=== PATIENT | male | born 1975 | race African-American/Black ===

== ENCOUNTER 2016-05-29 14:06 | Inpatient (IN) | payer SELFPAY ==
--- NOTE | ~2016-05-29 | OP ---
Record Of Operation [facility] [address] [place]. [address] NAME: VASU JACOBO : 77 STATUS : ADM IN [facility]#: [id number] AGE: 40 ADM/REG DATE : 05/29/16 MR#: [id number] REPORT SERV DATE: 05/30/16 DICTATED BY: ALFREDITO VELEZ DATE: 05/30/16 REPORT STATUS : Draft TRANSCRIBED BY: MODVeronica DATE: 05/30/16 DATE OF PROCEDURE: 05/29/2016 PREOPERATIVE DIAGNOSIS: Emergent upper airway obstruction secondary to angioedema. POSTOPERATIVE DIAGNOSIS: Emergent upper airway obstruction secondary to angioedema. OPERATIVE PROCEDURE PERFORMED: Revision of cricothyroidotomy and tracheostomy. INDICATIONS AND SIGNIFICANT HISTORY: The patient is a 40-year-old male who presented emergently to the emergency department at [facility]. He underwent an emergent cricothyroidotomy followed by intubation and was felt to benefit from placement of a tracheostomy tube and was scheduled for such. PROCEDURE IN DETAIL: The patient was taken emergently to the operating room, where a general endotracheal anesthesia was induced by the Anesthesia Service and through his previous cricothyroidotomy incision, dissection began in the mid portion of the neck. Dissection was conducted down through the strap muscles, which were reflected laterally. The thyroid isthmus was identified and divided midline and retracted laterally. This exposed the anterior tracheal wall. The anterior tracheal wall was entered between the second and third tracheal rings using a Po-type flap. The trachea was then entered and his nasotracheal tube was withdrawn and a 6-0 Shiley DCT tracheostomy tube was inserted under direct visualization. The anesthesia circuit was then connected and placement of the tube was confirmed with return of end-tidal CO2 and adequate tidal volume. The patient was then turned back toward anesthesia after securing the tube and taken to the intensive care unit in stable condition. COMPLICATIONS: None. ESTIMATED BLOOD LOSS: Less than 5 mL. IV FLUIDS: Per Anesthesia. DLA/NASEEM Alfredito Velez M.D. / [id number] CC: Audrey Castillo MD
--- NOTE | ~2016-05-29 | OP ---
Record Of Operation [facility] [address] [place]. [address] NAME: TIMOTHY HENRY : 77 STATUS : ADM IN [facility]#: [id number] AGE: 40 ADM/REG DATE : 05/29/16 MR#: [id number] REPORT SERV DATE: 05/30/16 DICTATED BY: ERNIE MEZA DATE: 05/29/16 REPORT STATUS : Draft TRANSCRIBED BY: NASEEM DATE: 05/29/16 DATE OF PROCEDURE: 05/29/2016 REPORT TITLE: Bronchoscopy And Intubation Note INDICATION FOR PROCEDURE: I was called to the emergency department to evaluate Timothy Henry by the ER physician, Dr. Fung and anesthesiologist Dr. Sykes who were evaluating Mr. Henry for a dramatic development of angioedema. He is a 40-year-old gentleman in relatively good health. Upon arrival, the patient was in the process of being prepped for a percutaneous cric by Dr. Thom Fung and we had the flexible fiberoptic bronchoscope brought to the room emergently. I was able to visualize markedly edematous vocal cords after advancing the bronchoscope through the right naris using local anesthetic, viscous lidocaine and with some difficulty, we were able to advance the bronchoscope through the patient's vocal cords and clearly visualize the brenda. At this point, Dr. Fung had already initiated a performance of cric in the setting of hypoxemia. We were able to advance a #7 endotracheal tube through the right naris and advanced it over the bronchoscope through the markedly edematous vocal cords with clear visualization of the brenda at approximately 3 cm below the tip of the endotracheal tube (#7.0). The patient was bagged using CO2 detector, and there was positive color change and bilateral breath sounds were audible with no breath sounds audible over the fundus of the stomach. We were able to bag the patient without difficulty and upon arrival of Dr. Saravia from [facility], the patient was transferred urgently to the operating room for exploration and control of bleeding of the cricothyroidotomy incision and the patient was moved emergently to the 2nd floor operating room for further care. We will resume management in the intensive care unit postoperatively. No family was available for update following this procedure. See additional Critical Care notes for further information and additional critical care management. KEM/NASEEM Ernie Meza MD / [id number] CC: Ernie Meza MD
--- NOTE | ~2016-05-29 | DS ---
Discharge Summary [facility] [address] [place]. [address] NAME: VASU JACOBO : 77 STATUS : ADM IN [facility]#: [id number] AGE: 40 ADM/REG DATE : 05/29/16 MR#: [id number] REPORT SERV DATE: 06/07/16 DICTATED BY: Roxanne JACOB DATE: 06/07/16 REPORT STATUS : Draft TRANSCRIBED BY: NASEEM DATE: 06/07/16 ADMISSION DATE: 05/29/2016 DISCHARGE DATE: 06/07/2016 DIAGNOSES AT DISCHARGE: Angioneurotic edema, secondary to C1 Esterase deficiency, posttraumatic stress disorder. CONSULT: ENT and Critical Care. PROCEDURE: Emergent tracheostomy. 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 Saravia in the emergency room. The patient was treated with Berinert C1 esterase replacement therapy with good results. His tracheostomy was ultimately removed, but because of his social status and inability to afford appropriate medications, the patient was kept as an inpatient for additional days to secure for him samples of the outpatient form with the therapy which is called Firazyr, once this medication was available for him for home use, the patient was discharged home in stable condition. He has plans to follow up with Dr. Mike Guevara, local vpk teacher and fruit rancher for ongoing management, and hopefully supply of oleg medications for ongoing management of his condition. MARGARITA/NASEEM Roxanne Jacob M.D. / [id number] CC: Qasim Jacobs M.D.
--- NOTE | ~2016-05-29 | DS ---
Discharge Summary [facility] [address] [place]. [address] NAME: VASU JACOBO : 77 STATUS : ADM IN PAT#: [id number] AGE: 40 ADM/REG DATE : 05/29/16 MR#: [id number] REPORT SERV DATE: 06/02/16 DICTATED BY: Roxanne JACOB DATE: 06/02/16 REPORT STATUS : Draft TRANSCRIBED BY: MODL DATE: 06/02/16 ADMISSION DATE: 05/29/2016 DISCHARGE DATE: INTERIM SUMMARY DATE: 06/02/2016. 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 PROCEDURES: Emergent tracheostomy placed in the emergency room by ENT. CONSULT: ENT and Pulmonary Critical Care. BRIEF HOSPITAL COURSE: A 40-year-old male with significant history of angioedema secondary to C1 esterase deficiency, presents to the emergency room with severe angioedema that ultimately required emergent tracheostomy as a life-saving effort done in the emergency room. He was transitioned to the ICU, where he was given Berinert for immediate therapy. The patient responded well and was subsequently transitioned to intermediate care. Seen and evaluated by ENT. His tracheostomy was subsequently been removed and case management is currently working diligently to provide two significant medicines. One is Cinryze, which is a purified C1 concentrate, which is a maintenance therapy for his condition, as well as Firazyr, which is a bradykinin B2 receptor sergey, which is also a necessary therapy for his condition. The patient will transition to a non-monitored floor today. He will not be safe to discharge so we can secure these medications for the patient as his condition will recover and without appropriate therapy to abort an episode, it will become a life- threatening issue again. The patient will ultimately follow up with Dr. Guevara, a local dealmaker after discharge, but not until appropriate medication therapy is available for him. The patient did have a swallow evaluation, which he passed and has been subsequently started on a regular diet. Further recommendations for treatment pending input from the hospitalist team, but at this juncture, he is medically ready to go. We are simply working through Case Management to provide the appropriate outpatient therapy for his unique condition as this is critically important to management and could prevent a life-threatening episode in the future. The patient is aware of the severity of his illness and the need to have appropriate therapy and is currently agreeable to staying in the hospital until we can provide the above-mentioned therapy. MARGARITA/NASEEM Roxanne Jacob M.D. / [id number] CC: Discharge Summary [address] [address] NAME: VASU JACOBO : 77 STATUS : ADM IN [facility]#: [id number] AGE: 40 ADM/REG DATE : 05/29/16 MR#: [id number] REPORT SERV DATE: 06/02/16 DICTATED BY: Roxanne JACOB DATE: 06/02/16 REPORT STATUS : Draft TRANSCRIBED BY: MODVeronica DATE: 06/02/16 Audrey Castillo MD
--- NOTE | ~2016-05-29 | DS ---
Discharge Summary [facility] [address] [place]. 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 CONSULTS: ENT and Pulmonary and Critical Care Medicine. PROCEDURES: Tracheostomy. BRIEF HOSPITAL COURSE: A 40-year-old male patient with known C1 esterase deficiency with recurrent angioedema with previous presentations though less severe than this current admission. The patient had airway compromise requiring emergent tracheostomy done by Dr. Saravia in the emergency room. We have worked at great lengths to provide appropriate medical therapy for ongoing management of his condition including Cinryze, which is a purified C1 concentrate, and Firazyr, which is a bradykinin B2 receptor sergey. Unfortunately, once his trach was removed, the patient demanded to leave [facility] despite multiple attempts by multiple people to convince him of the preventible, though life- threatening nature of his condition. The patient would not wait for us to arrange medical therapy or followup and instead is leaving [facility]. The patient's brother was here with him. I did plead with the brother also to try to talk some sense into him to understand the grave decision that he was making that he was potentially putting his very life in danger by leaving, but despite those efforts, the patient decided that he was not staying regardless. As a result, the patient was discharged against medical advice on 06/02/2016. [facility]/NASEEM Roxanne Jacob M.D. / [id number] CC: Audrey Castillo MD
--- NOTE | ~2016-05-29 | HP ---
History And Physical [facility] [address] [place]. [address] NAME: TIMOTHY HENRY : [birth year] STATUS : ADM IN [facility]#: [id number] AGE: 40 ADM/REG DATE : 05/29/16 MR#: [id number] REPORT SERV DATE: 05/29/16 DICTATED BY: AUDREY MEZA DATE: 05/29/16 REPORT STATUS : Draft TRANSCRIBED BY: MODL DATE: 05/29/16 DATE OF ADMISSION: 05/29/2016 PULMONARY AND CRITICAL CARE MEDICINE ADMITTING HISTORY AND PHYSICAL REASON FOR ADMISSION: Hereditary angioedema exacerbation requiring emergent airway. HISTORY OF PRESENT ILLNESS: Mr. 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 He actually presented to the emergency department in marked distress and was brought back to the trauma room immediately with dramatic presentation of angioedema of the lips and neck. He was seen by Dr. Thom Rolon and ultimately Dr. Naranjo from Anesthesiology became involved as well as they were having significant difficulty obtaining a secure airway on him. I was asked to join in the efforts and a bronchoscopy cart was brought to the bedside and he was becoming quite hypoxemic (no more than 1 minute between development of hypoxemia and obtaining the airway). Simultaneous efforts to prep his neck for emergent cricothyroidotomy were being completed by Dr. Thom Rolon as Dr. Naranjo and I attempted to utilize fiberoptic bronchoscopy to visualize his cords and intubate him nasally from above. He had already failed attempts to intubate using a GlideScope due to marked liver angioedema. Ultimately I was able to intubate through the right naris using the bronchoscope as a bougie and advance the tube into the trachea using direct visualization with a flexible fiberoptic bronchoscope. By this time, he had already had initiation of a cricothyroidotomy by Dr. Rolon. Please see my bronchoscopy/intubation note for additional details of that procedure. He was seen by Dr. Saravia in the emergency department who at this point had already arrived as well and he was moved emergently to the operating room for tracheostomy and revision of the cricothyroidotomy. He is now stable on the ventilator in the PACU, awaiting an ICU bed for further care. PAST MEDICAL HISTORY: Significant only for recurrent angioedema and C1 esterase deficiency, requiring hospitalization at our facility in August of 2009, June of 2011, January of 2015, and April of 2015. Evidently he has been referred multiple times to Allergy Immunology including through project access but the patient has not been able to connect due to financial issues. HOME MEDICATIONS: Include Benadryl, Aleve, and mupirocin ointment. SOCIAL HISTORY: Nonsmoker. Nondrinker. No illicit drug use. According to his previous records, evidently his mother normally accompanies him to the emergency room although she has not been available today. FAMILY HISTORY: Both mother and grandfather have C1 esterase deficiency with recurrent angioedema. ALLERGIES: NONE KNOWN. REVIEW OF SYSTEMS: History And Physical [address] [address] NAME: TIMOTHY HENRY : 77 STATUS : ADM IN [facility]#: [id number] AGE: 40 ADM/REG DATE : 05/29/16 MR#: [id number] REPORT SERV DATE: 05/29/16 DICTATED BY: AUDREY MEZA DATE: 05/29/16 REPORT STATUS : Draft TRANSCRIBED BY: NASEEM DATE: 05/29/16 Has been completed and is negative except for those points described above in the history of present illness section of the dictation. PHYSICAL EXAMINATION: VITAL SIGNS: Heart rate is in the 80s and regular. He is afebrile, breathing 12 times a minute on mechanical ventilation and a propofol drip. Blood pressure is in the 130 systolic. GENERAL: He is an male with dramatic angioedema of the lips and neck. Ears and nose are unremarkable. Mouth have moist oral mucosa. NECK: Has a fresh tracheostomy with some oozing around the incision site. No JVD is noted. LUNGS: Clear to auscultation bilaterally. HEART: S1, S2. Brisk cap refill distal extremities. ABDOMEN: Soft, nontender, nondistended with positive bowel sounds in all four quadrants. No appreciable peritoneal signs. : A Ovalle catheter is indwelling and draining translucent yellow urine. EXTREMITIES: Without clubbing, cyanosis, or edema. SKIN: Warm and dry. No rash is appreciated. LYMPHATIC: Exam is unremarkable with no palpable adenopathy throughout. NEUROLOGIC: Exam is grossly intact although he is sedated on a propofol drip which limits my evaluation. PSYCHIATRIC EXAM: Unable to perform due to sedation. LABORATORY AND DIAGNOSTIC DATA: Personal review of diagnostic workup completed in the emergency department, a glucose level was 102. No further labs have been collected due to the acuity of his airway situation and being brushed off to the operating room. IMPRESSION: Acute hypoxemic respiratory failure secondary to acute exacerbation of angioedema in the setting of known C1 esterase deficiency, status post nasal intubation and cricothyroidotomy, now revised and converted to a tracheostomy. Hemodynamically stable on the ventilator. PLAN: We are moving Mr. Timothy Henry to the MICU for additional management. We will treat with Benadryl, Pepcid, and Solu-Medrol. He has already received epinephrine in the emergency department. We will control pain and check some basic labs and obtain records from his outpatient providers. He will certainly need outpatient followup. We will also consult with clinical pharmacy and determine whether C1 esterase concentrate is available in our facility. Case has been discussed with Dr. Thom Rolon during emergent intubation attempts at the bedside in addition to Dr. Naranjo from Anesthesiology and Dr. Saravia from [facility], [facility], [facility] Thro[facility]. We will continue to attempt to locate his mother or other family to update them on his condition and he will be a full code during this hospitalization. DVT prophylaxis is SCDs and TEDs in light of recent tracheostomy with some oozing from the surgical site, and stress ulcer prophylaxis will be famotidine twice daily, electrolyte protocol, bronchodilator protocol have been initiated and he will need a PICC line. History And Physical [address] [address] NAME: TIMOTHY HENRY : 77 STATUS : ADM IN [facility]#: [id number] AGE: 40 ADM/REG DATE : 05/29/16 MR#: [id number] REPORT SERV DATE: 05/29/16 DICTATED BY: AUDREY MEZA DATE: 05/29/16 REPORT STATUS : Draft TRANSCRIBED BY: NASEEM DATE: 05/29/16 KEM/NASEEM Audrey Meza MD / [id number]
[~2016-05-29 14:06] MED LIST: ALEVE220 MG PO; BACTRONASA NAS; BEN25 PO; DENIES HOME MEDS; EPIPEN0.3 IM
[2016-05-29 18:13] LABS: BASOPHILS 0.1 %; BASOPHILS ABSOLUTE 0.01 10/3/uL (0.0-0.16); EOSINOPHILS 0 %; HEMATOCRIT 44.8 % (40.0-51.0); HEMOGLOBIN 15.2 g/dL (13.6-17.8); IMMATURE GRANULOCYTES 0.2 %; IMMATURE GRANULOCYTES ABSOLUTE 0.03 10/3/uL (0.0-0.11); LYMPHOCYTES 3.4 %; LYMPHOCYTES ABSOLUTE 0.52 10/3/uL (0.67-4.30); MEAN CORPUS HGB CONC 33.9 g/dL (32.0-36.0); MEAN CORPUSCULAR HEMOGLOB 30.8 pg (26.0-34.0); MEAN CORPUSCULAR VOLUME 90.7 fL (80-100); MEAN PLATELET VOLUME 11.4 fL (9.2-13.0); MONOCYTES 0.7 %; NEUTROPHILS 95.6 %; NEUTROPHILS ABSOLUTE 14.54 10/3/uL (2.02-8.40); PLATELET COUNT 224 10/3/uL (150-400); RBC DISTRIBUTION WIDTH 13.8 % (12.0-16.0); RED CELL COUNT 4.94 10/6/uL (4.7-6.1); WHITE BLOOD CELLS 15.2 10/3/uL (4.5-10.5)
[2016-05-29 18:14] LABS: MANUAL DIFF NO %
[2016-05-29 18:21] LABS: INTERNATIONAL NORMAL RATI 1.1 UNITS (-); PARTIAL THROMBO TIME 25.2 SEC (22.5-37.2); PROTIME (NOT ORD) 14.3 SEC (12.0-14.5)
[2016-05-29 18:35] LABS: A/G RATIO 1.1 (0.7-1.9); ALBUMIN 3.3 G/DL (3.5-5.0); ALKALINE PHOSPHATASE 68 U/L (45-117); BUN (BLOOD UREA NITROGEN) 13 MG/DL (6-23); CALCIUM, SERUM 8.1 MG/DL (8.5-10.4); CHLORIDE, SERUM 110 MMOL/L (96-112); CO2 (CARBON DIOXIDE) 25 MMOL/L (24-34); CREATININE 1.03 MG/DL (0.70-1.30); FREE T4 1.12 NG/DL (0.76-1.46); GFR AFRICAN AMERICAN 106 ML/MIN (>=60); GFR NON AFRICAN AMERICAN 91 ML/MIN (>=60); GLUCOSE, SERUM 140 MG/DL (60-99); PHOSPHORUS, SERUM 3.3 MG/DL (2.5-4.5); POTASSIUM, SERUM 4.7 MMOL/L (3.5-5.3); SGOT(AST) 20 U/L (5-40); SGPT(ALT) 45 U/L (5-65); SODIUM, SERUM 143 MMOL/L (135-148); TOTAL BILIRUBIN 0.4 MG/DL (0-1.2); TOTAL PROTEIN 6.3 G/DL (6.0-8.5)
[2016-05-29 19:13] LABS: ASCORBIC ACID (UR NOT ORDER) NEG (NEG); BILIRUBIN, URINE NEGATIVE (NEG); KETONE, URINE NEGATIVE (NEG); LEUKOCYTE ESTERASE(NOT OR NEG (NEG); WBC (NOT ORDERED) (RFLEX) < 1 (0-5)
[2016-05-29 19:21] LABS: PHENCYCLIDINE(PCP) NEG (NEG)
[2016-05-29 19:22] LABS: AMPHETAMINES (NOT ORD) NEG (NEG); BARBITURATES (NOT ORDERED NEG (NEG); BENZODIAZEPINES (NOT ORD) POS (NEG); CANNABINOIDS (THC) NEG (NEG); COCAINE (NOT ORDERED) NEG (NEG); OPIATES POS (NEG); TRICYCLICS NEG (NEG)
[2016-05-29 19:49] LABS: ALLENS TEST Pos; CARBOXYHEMOGLOBIN 0.5 % (0-3); HCO3 (ACTUAL BICARBONATE) 23.4 MEQ/L (23-27); HEMOBLOGIN CONTENT 15.8 G/DL (14-18); INSTRUMENT SERIAL # 8083; METHEMOGLOBIN 0.4 % (0-3); MODE CMV; OPERATOR ID 17370; PCO2 (CO2 TENSION) 42 MMHG (35-45); PO2 (O2 TENSION) 137 MMHG (79-93); SAMPLE Arterial; TIDAL VOLUME 480 ML; pH 7.36 (7.37-7.43)
[2016-05-30 04:33] LABS: ALLENS TEST Pos; BE (BASE EXCESS) -2.1 MEQ/L (0 +/- 2.5); CARBOXYHEMOGLOBIN 0.1 % (0-3); HCO3 (ACTUAL BICARBONATE) 21.6 MEQ/L (23-27); HEMOBLOGIN CONTENT 15.5 G/DL (14-18); INSTRUMENT SERIAL # 8083; METHEMOGLOBIN 0.5 % (0-3); MODE CMV; O2 CONTENT 21.5 VOL% (18-24); OPERATOR ID 35190; PCO2 (CO2 TENSION) 34 MMHG (35-45); PO2 (O2 TENSION) 131 MMHG (79-93); SAMPLE Arterial; TIDAL VOLUME 450 ML; pH 7.42 (7.37-7.43)
[2016-05-30 05:04] LABS: BASOPHILS 0 %; EOSINOPHILS 0 %; HEMATOCRIT 46.6 % (40.0-51.0); HEMOGLOBIN 15.6 g/dL (13.6-17.8); IMMATURE GRANULOCYTES 0.3 %; IMMATURE GRANULOCYTES ABSOLUTE 0.05 10/3/uL (0.0-0.11); LYMPHOCYTES 3.2 %; LYMPHOCYTES ABSOLUTE 0.64 10/3/uL (0.67-4.30); MEAN CORPUS HGB CONC 33.5 g/dL (32.0-36.0); MEAN CORPUSCULAR HEMOGLOB 31.1 pg (26.0-34.0); MEAN PLATELET VOLUME 11.5 fL (9.2-13.0); MONOCYTES 1.7 %; MONOCYTES ABSOLUTE 0.34 10/3/uL (0.21-1.20); NEUTROPHILS 94.8 %; NEUTROPHILS ABSOLUTE 18.74 10/3/uL (2.02-8.40); PLATELET COUNT 231 10/3/uL (150-400); RBC DISTRIBUTION WIDTH 13.8 % (12.0-16.0); RED CELL COUNT 5.01 10/6/uL (4.7-6.1); WHITE BLOOD CELLS 19.8 10/3/uL (4.5-10.5)
[2016-05-30 05:06] LABS: MANUAL DIFF NO %
[2016-05-30 05:38] LABS: ALBUMIN 3.4 G/DL (3.5-5.0); BUN (BLOOD UREA NITROGEN) 17 MG/DL (6-23); CALCIUM, SERUM 8.4 MG/DL (8.5-10.4); CHLORIDE, SERUM 107 MMOL/L (96-112); CO2 (CARBON DIOXIDE) 20 MMOL/L (24-34); CREATININE 1.23 MG/DL (0.70-1.30); GFR AFRICAN AMERICAN 85 ML/MIN (>=60); GFR NON AFRICAN AMERICAN 73 ML/MIN (>=60); GLUCOSE, SERUM 125 MG/DL (60-99); PHOSPHORUS, SERUM 3.2 MG/DL (2.5-4.5); SODIUM, SERUM 139 MMOL/L (135-148)
[2016-05-30 05:39] LABS: POTASSIUM, SERUM 4.8 MMOL/L (3.5-5.3)
[2016-05-30] MEDS ORDERED: BEN25 PO (19:44)
[2016-05-31 04:38] LABS: BASOPHILS 0.1 %; BASOPHILS ABSOLUTE 0.01 10/3/uL (0.0-0.16); EOSINOPHILS 0 %; HEMATOCRIT 41.9 % (40.0-51.0); HEMOGLOBIN 14.1 g/dL (13.6-17.8); IMMATURE GRANULOCYTES 0.2 %; IMMATURE GRANULOCYTES ABSOLUTE 0.04 10/3/uL (0.0-0.11); LYMPHOCYTES 2.4 %; LYMPHOCYTES ABSOLUTE 0.46 10/3/uL (0.67-4.30); MANUAL DIFF NO %; MEAN CORPUS HGB CONC 33.7 g/dL (32.0-36.0); MEAN CORPUSCULAR HEMOGLOB 31.1 pg (26.0-34.0); MEAN CORPUSCULAR VOLUME 92.3 fL (80-100); MEAN PLATELET VOLUME 11.6 fL (9.2-13.0); MONOCYTES 4.3 %; MONOCYTES ABSOLUTE 0.82 10/3/uL (0.21-1.20); NEUTROPHILS ABSOLUTE 17.76 10/3/uL (2.02-8.40); PLATELET COUNT 215 10/3/uL (150-400); RBC DISTRIBUTION WIDTH 13.8 % (12.0-16.0); RED CELL COUNT 4.54 10/6/uL (4.7-6.1); WHITE BLOOD CELLS 19.1 10/3/uL (4.5-10.5)
[2016-05-31 04:52] LABS: BUN (BLOOD UREA NITROGEN) 19 MG/DL (6-23); CALCIUM, SERUM 8.4 MG/DL (8.5-10.4); CHLORIDE, SERUM 106 MMOL/L (96-112); CREATININE 1.11 MG/DL (0.70-1.30); GFR AFRICAN AMERICAN 96 ML/MIN (>=60); GFR NON AFRICAN AMERICAN 83 ML/MIN (>=60); GLUCOSE, SERUM 138 MG/DL (60-99); POTASSIUM, SERUM 4.5 MMOL/L (3.5-5.3); SODIUM, SERUM 141 MMOL/L (135-148)
[2016-05-31 04:57] LABS: CO2 (CARBON DIOXIDE) 28 MMOL/L (24-34); PHOSPHORUS, SERUM 2.2 MG/DL (2.5-4.5)
[2016-06-01 09:56] LABS: BASOPHILS 0.1 %; BASOPHILS ABSOLUTE 0.01 10/3/uL (0.0-0.16); EOSINOPHILS 0.2 %; EOSINOPHILS ABSOLUTE 0.02 10/3/uL (0.0-0.53); HEMATOCRIT 40.7 % (40.0-51.0); HEMOGLOBIN 13.9 g/dL (13.6-17.8); IMMATURE GRANULOCYTES 0.4 %; IMMATURE GRANULOCYTES ABSOLUTE 0.05 10/3/uL (0.0-0.11); LYMPHOCYTES ABSOLUTE 2.61 10/3/uL (0.67-4.30); MEAN CORPUS HGB CONC 34.2 g/dL (32.0-36.0); MEAN CORPUSCULAR HEMOGLOB 30.8 pg (26.0-34.0); MEAN PLATELET VOLUME 11.3 fL (9.2-13.0); MONOCYTES 9.1 %; MONOCYTES ABSOLUTE 1.19 10/3/uL (0.21-1.20); NEUTROPHILS 70.2 %; NEUTROPHILS ABSOLUTE 9.14 10/3/uL (2.02-8.40); PLATELET COUNT 197 10/3/uL (150-400); RBC DISTRIBUTION WIDTH 13.6 % (12.0-16.0); RED CELL COUNT 4.52 10/6/uL (4.7-6.1)
[2016-06-01 09:58] LABS: MANUAL DIFF NO %
[2016-06-01 10:16] LABS: BUN (BLOOD UREA NITROGEN) 18 MG/DL (6-23); CALCIUM, SERUM 8.3 MG/DL (8.5-10.4); CHLORIDE, SERUM 110 MMOL/L (96-112); CO2 (CARBON DIOXIDE) 25 MMOL/L (24-34); CREATININE 0.89 MG/DL (0.70-1.30); GFR AFRICAN AMERICAN 125 ML/MIN (>=60); GFR NON AFRICAN AMERICAN 108 ML/MIN (>=60); POTASSIUM, SERUM 3.6 MMOL/L (3.5-5.3); SODIUM, SERUM 145 MMOL/L (135-148)
[2016-06-01 10:17] LABS: GLUCOSE, SERUM 97 MG/DL (60-99)
[2016-06-02 04:31] LABS: BASOPHILS 0.1 %; BASOPHILS ABSOLUTE 0.01 10/3/uL (0.0-0.16); EOSINOPHILS 1.2 %; EOSINOPHILS ABSOLUTE 0.15 10/3/uL (0.0-0.53); HEMATOCRIT 39.1 % (40.0-51.0); HEMOGLOBIN 13.1 g/dL (13.6-17.8); IMMATURE GRANULOCYTES 0.2 %; IMMATURE GRANULOCYTES ABSOLUTE 0.03 10/3/uL (0.0-0.11); LYMPHOCYTES 16.4 %; LYMPHOCYTES ABSOLUTE 2.06 10/3/uL (0.67-4.30); MEAN CORPUS HGB CONC 33.5 g/dL (32.0-36.0); MEAN CORPUSCULAR HEMOGLOB 30.8 pg (26.0-34.0); MEAN CORPUSCULAR VOLUME 91.8 fL (80-100); MEAN PLATELET VOLUME 11.2 fL (9.2-13.0); MONOCYTES 8.3 %; MONOCYTES ABSOLUTE 1.05 10/3/uL (0.21-1.20); NEUTROPHILS 73.8 %; NEUTROPHILS ABSOLUTE 9.29 10/3/uL (2.02-8.40); PLATELET COUNT 191 10/3/uL (150-400); RBC DISTRIBUTION WIDTH 13.3 % (12.0-16.0); RED CELL COUNT 4.26 10/6/uL (4.7-6.1); WHITE BLOOD CELLS 12.6 10/3/uL (4.5-10.5)
[2016-06-02 04:32] LABS: MANUAL DIFF NO %
[2016-06-02 04:36] LABS: BUN (BLOOD UREA NITROGEN) 16 MG/DL (6-23); CALCIUM, SERUM 8.2 MG/DL (8.5-10.4); CHLORIDE, SERUM 106 MMOL/L (96-112); CREATININE 1.03 MG/DL (0.70-1.30); GFR AFRICAN AMERICAN 106 ML/MIN (>=60); GFR NON AFRICAN AMERICAN 91 ML/MIN (>=60); GLUCOSE, SERUM 90 MG/DL (60-99); POTASSIUM, SERUM 3.7 MMOL/L (3.5-5.3); SODIUM, SERUM 144 MMOL/L (135-148)
[2016-06-02 04:40] LABS: CO2 (CARBON DIOXIDE) 30 MMOL/L (24-34)
[2016-06-04 04:37] LABS: BASOPHILS 0.1 %; BASOPHILS ABSOLUTE 0.01 10/3/uL (0.0-0.16); EOSINOPHILS 4.3 %; EOSINOPHILS ABSOLUTE 0.34 10/3/uL (0.0-0.53); HEMATOCRIT 39.5 % (40.0-51.0); HEMOGLOBIN 13.6 g/dL (13.6-17.8); IMMATURE GRANULOCYTES 0.4 %; IMMATURE GRANULOCYTES ABSOLUTE 0.03 10/3/uL (0.0-0.11); LYMPHOCYTES 26.5 %; LYMPHOCYTES ABSOLUTE 2.08 10/3/uL (0.67-4.30); MANUAL DIFF NO %; MEAN CORPUS HGB CONC 34.4 g/dL (32.0-36.0); MEAN PLATELET VOLUME 11.3 fL (9.2-13.0); MONOCYTES 7.4 %; MONOCYTES ABSOLUTE 0.58 10/3/uL (0.21-1.20); NEUTROPHILS 61.3 %; NEUTROPHILS ABSOLUTE 4.82 10/3/uL (2.02-8.40); PLATELET COUNT 203 10/3/uL (150-400); RBC DISTRIBUTION WIDTH 12.7 % (12.0-16.0); RED CELL COUNT 4.39 10/6/uL (4.7-6.1); WHITE BLOOD CELLS 7.9 10/3/uL (4.5-10.5)
[2016-06-04 04:53] LABS: A/G RATIO 0.9 (0.7-1.9); ALBUMIN 3.2 G/DL (3.5-5.0); ALKALINE PHOSPHATASE 75 U/L (45-117); BUN (BLOOD UREA NITROGEN) 13 MG/DL (6-23); CALCIUM, SERUM 8.3 MG/DL (8.5-10.4); CHLORIDE, SERUM 109 MMOL/L (96-112); CREATININE 0.99 MG/DL (0.70-1.30); GFR AFRICAN AMERICAN 111 ML/MIN (>=60); GFR NON AFRICAN AMERICAN 96 ML/MIN (>=60); GLOBULIN 3.5 G/DL (2.5-4.1); GLUCOSE, SERUM 92 MG/DL (60-99); SGOT(AST) 41 U/L (5-40); SGPT(ALT) 71 U/L (5-65); SODIUM, SERUM 143 MMOL/L (135-148); TOTAL BILIRUBIN 0.5 MG/DL (0-1.2); TOTAL PROTEIN 6.7 G/DL (6.0-8.5)
[2016-06-04 04:54] LABS: CO2 (CARBON DIOXIDE) 24 MMOL/L (24-34)
[2016-06-05 05:42] LABS: BASOPHILS 0.1 %; BASOPHILS ABSOLUTE 0.01 10/3/uL (0.0-0.16); EOSINOPHILS 4.8 %; EOSINOPHILS ABSOLUTE 0.38 10/3/uL (0.0-0.53); HEMATOCRIT 39.8 % (40.0-51.0); HEMOGLOBIN 13.6 g/dL (13.6-17.8); IMMATURE GRANULOCYTES 0.6 %; IMMATURE GRANULOCYTES ABSOLUTE 0.05 10/3/uL (0.0-0.11); LYMPHOCYTES 27.3 %; LYMPHOCYTES ABSOLUTE 2.18 10/3/uL (0.67-4.30); MEAN CORPUS HGB CONC 34.2 g/dL (32.0-36.0); MEAN CORPUSCULAR HEMOGLOB 30.8 pg (26.0-34.0); MEAN PLATELET VOLUME 11.3 fL (9.2-13.0); MONOCYTES 7.1 %; MONOCYTES ABSOLUTE 0.57 10/3/uL (0.21-1.20); NEUTROPHILS 60.1 %; PLATELET COUNT 205 10/3/uL (150-400); RBC DISTRIBUTION WIDTH 12.9 % (12.0-16.0); RED CELL COUNT 4.42 10/6/uL (4.7-6.1)
[2016-06-05 05:51] LABS: MANUAL DIFF NO %
[2016-06-05 06:05] LABS: A/G RATIO 0.9 (0.7-1.9); ALBUMIN 3.2 G/DL (3.5-5.0); BUN (BLOOD UREA NITROGEN) 13 MG/DL (6-23); CALCIUM, SERUM 8.4 MG/DL (8.5-10.4); CHLORIDE, SERUM 107 MMOL/L (96-112); CHOL/HDL RATIO(NOT ORDER) 4.9 (0-5); CHOLESTEROL 153 MG/DL (< 200); CO2 (CARBON DIOXIDE) 27 MMOL/L (24-34); CREATININE 0.91 MG/DL (0.70-1.30); GFR AFRICAN AMERICAN 123 ML/MIN (>=60); GFR NON AFRICAN AMERICAN 106 ML/MIN (>=60); GLOBULIN 3.4 G/DL (2.5-4.1); GLUCOSE, SERUM 87 MG/DL (60-99); HDL CHOLESTEROL 31 MG/DL (> 39); LDL CHOLESTEROL 107 MG/DL (< 130); NON-HDL CHOLESTEROL 122 MG/DL (< 160); POTASSIUM, SERUM 3.9 MMOL/L (3.5-5.3); SGOT(AST) 29 U/L (5-40); SGPT(ALT) 65 U/L (5-65); SODIUM, SERUM 141 MMOL/L (135-148); TOTAL BILIRUBIN 0.3 MG/DL (0-1.2); TOTAL PROTEIN 6.6 G/DL (6.0-8.5); TRIGLYCERIDE 76 MG/DL (< 150)
[2016-06-05 06:09] LABS: ALKALINE PHOSPHATASE 89 U/L (45-117); PHOSPHORUS, SERUM 3.4 MG/DL (2.5-4.5)
[2016-06-05 06:12] LABS: PREALBUMIN 23.2 MG/DL (17.0-43.0)
== END 2016-06-07 18:00 | disposition home or self-care (01) | DRG 3 ==
LOC: ER 14:06 → MIC 17:22 → IMCU 05-31 16:35
PROVIDERS: Hospitalist; Internal Medicine; Internal Medicine Critical Care Medicine; Internal Medicine Pulmonary Disease; Otolaryngology
PROC: 0BB10ZZ Excision of Trachea, Open Approach (ICD-10-PCS; 2016-05-29)
PROC: 0B110F4 Bypass Trachea to Cutaneous with Tracheostomy Device, Open Approach (ICD-10-PCS; 2016-05-29)
PROC: 0BW10FZ Revision of Tracheostomy Device in Trachea, Open Approach (ICD-10-PCS; 2016-05-29)
PROC: 0BH17EZ Insertion of Endotracheal Airway into Trachea, Via Natural or Artificial Opening (ICD-10-PCS; 2016-05-29)
PROC: 5A1945Z Respiratory Ventilation, 24-96 Consecutive Hours (ICD-10-PCS; principal; 2016-05-29 13:15)
PROC: 0BP1XFZ Removal of Tracheostomy Device from Trachea, External Approach (ICD-10-PCS; 2016-06-02)
DX: D84.1 Defects in the complement system (principal); F43.10 Post-traumatic stress disorder, unspecified; Z91.19 Patient's noncompliance with other medical treatment and regimen
CPT/HCPCS: 31720; 36600; 71010; 74000; 74230; 80048; 80053; 80061; 80069; 80305; 81001; 82805; 82962; 83036; 83735; 84100; 84134; 84439; 84443; 85025; 85610; 85730; 86160; 86161; 86332; 87641; 92610-GN; 92611-GN; 94002; 94003; 94640; 96372; 96374; 96375; 99291; 99292; A9270-GY; G8996-CI-GN; G8996-CN-GN; G8997-CI-GN; G8997-CN-GN; G8998-CI-GN; G8998-CN-GN; J0330; J0597; J0690; J1170; J1200; J2405; J2710; J2930; J3010

== ENCOUNTER 2016-07-28 07:59 | Emergency (ER) | payer SELFPAY | END 2016-07-28 08:51 | disposition home or self-care (01) | LOC: ER 07:59 | DX: R22.1 Localized swelling, mass and lump, neck (principal); L90.5 Scar conditions and fibrosis of skin; Z87.891 Personal history of nicotine dependence; F43.10 Post-traumatic stress disorder, unspecified; Z88.8 Allergy status to other drugs, medicaments and biological substances; Z79.899 Other long term (current) drug therapy | CPT/HCPCS: 99282 ==